=== PATIENT | female | born 1960 | race Caucasian/White ===

== ENCOUNTER 2016-08-02 06:44 | Emergency (ER) ==
[2016-08-02] MEDS ORDERED: ASPIRIN PO STA ×2 (07:01→07:02)
--- NOTE | 2016-08-02 07:05 | EKG Report ---
Test Performed on : 08/02/2016 06:50:58 AM Test Reason : CHEST PAIN Blood Pressure : / mmHG Vent. Rate : 087 BPM Atrial Rate : 087 BPM P-R Int : 118 ms QRS Dur : 140 ms QT Int : 464 ms P-R-T Axes : 103 165 031 degrees QTc Int : 558 ms Atrial-sensed ventricular-paced rhythm Abnormal ECG When compared with ECG of 01-DEC-2015 18:50, Electronic ventricular pacemaker has replaced Atrial fibrillation. Unconfirmed Result
[2016-08-02 07:23] LABS: MANUAL DIFF NEEDED? NO
[2016-08-02 07:24] LABS: BASO% 0.6 % (0.0-0.8); EOS# 0.14 X1000 (0.0-0.7); EOS% 2.1 % (0.0-10.0); HEMATOCRIT 35.3 % (37.0-47.0); HEMOGLOBIN 11.2 g/dL (12.0-16.0); IMM GRAN# 0.01 X1000 (0.0-0.04); IMM GRAN% 0.2 % (0.0-0.5); LYMPH# 2.56 X1000 (1.2-3.4); LYMPH% 38.6 % (20.5-51.1); MCH 27.9 PG (27-31); MCHC 31.7 g/dL (33-37); MCV 87.8 FL (81-99); MONO# 0.85 X1000 (0.11-0.59); MONO% 12.8 % (1.7-9.3); MPV 10.7 FL (7.4-10.4); NEUT% 45.7 % (42.2-75.2); PLT 252 X1000 (130-400); RBC 4.02 XMIL (4.2-5.4)
[2016-08-02] MEDS ORDERED: ATIVAN IV ONE ×2 (07:27→09:44)
[2016-08-02 07:39] LABS: PROTIME 14.5 Seconds (12.1-15.5)
[2016-08-02] MEDS ORDERED: ZOFRAN IV ONE (07:39)
[2016-08-02 07:40] LABS: PTT PL 35.1 Seconds (22.6-43.9)
[2016-08-02 08:01] LABS: URINE SOURCE CLEAN CATCH
--- NOTE | 2016-08-02 08:09 | PROVIDER DOCUMENTATION ---
HPI-Chest Pain <HiramDebra - Last Filed: 08/02/16 11:22> - General Source: patient - History of Present Illness-CP Location: reports: substernal Chest Pain Radiation: reports: no radiation Quality of Pain: reports: aching, pressure Severity in ED: mild Onset/Duration: other (6 hours ago) Timing: still present, improving Context/Activities at Onset: reports: light activity Modifying Factors: improves with: rest, other (See above) Associated Symptoms: reports: fatigue. denies: abdominal pain, back pain, diaphoresis, dizziness, nausea, shortness of breath, syncope, vomiting, weakness Nitro Today/Relief: no nitro taken today Aspirin Treatment Today: provided by ED Prior Chest Pain/Cardiac Workup: reports: no prior chest pain, cardiac cath. denies: heart attack Similar Symptoms Previously?: No Recently Seen Here or By Another Healthcare Provider: No <PhilSuzi X - Last Filed: 08/02/16 17:19> - General Chief Complaint: Chest Pain Stated Complaint: CHEST PAIN Time Seen by Provider: 08/02/16 07:00 Allergies/Adverse Reactions: Patient Allergies Allergy/AdvReac Type Severity Reaction Status Date / Time diphenhydramine HCl * Allergy Severe Unknown Verified 11/06/15 13:58 [From Benadryl] soy Allergy FLUSHING Verified 12/01/15 18:46 Home Medications: Home Medication List Medication Instructions Recorded Confirmed Last Taken Type Bupropion HCl [Wellbutrin Xl] 300 mg PO DAILY 07/23/12 11/30/14 10/21/14 History Cholecalciferol (Vitamin D3) 50,000 unit PO DIRECTED 07/23/12 11/30/14 08:00 History [Vitamin D3] Clonazepam [Klonopin] 2 mg PO TID PRN PRN 07/23/12 11/30/14 04/26/14 21:00 History Cyclobenzaprine [Flexeril] 10 mg PO Q4-6H PRN PRN 07/23/12 11/30/14 04/20/14 21: 00 History Fluoxetine [Prozac] 40 mg PO DAILY 07/23/12 11/30/14 10/21/14 08:00 History Hydroxychloroquine [Plaquenil] 200 mg PO BID 07/23/12 11/30/14 10/21/14 18:00 History Pramipexole [Mirapex] 0.25 mg PO QHS 07/23/12 11/30/14 10/21/14 18:00 History Furosemide [Lasix] 40 mg PO PRN PRN 04/16/13 11/30/14 10/19/14 History Meclizine HCl [Antivert] 25 mg PO PRN PRN 04/23/14 11/30/14 04/20/14 21:00 History Warfarin [Coumadin] 5 mg PO DIRECTED 04/23/14 11/30/14 10/18/14 History Warfarin [Coumadin] 6 mg PO QHS 04/23/14 11/30/14 10/20/14 20:00 History Ondansetron Odt [Zofran 4 mg Odt] 4 mg PO Q6H PRN PRN #30 tablet 10/22/14 Unknown Rx Oxycodone HCl/Acetaminophen 1 each PO Q4-6H PRN PRN #20 tablet 10/22/14 Unknown Rx [Percocet 7.5-325 mg Tablet] Hydrocodone/Acetaminophen [[place] 1 each PO Q4-6H PRN PRN #14 tablet 11/30/14 Unknown Rx 7.5-325 Tablet] Prednisone 50 mg PO DAILY #6 tablet 11/30/14 Unknown Rx Tizanidine [Zanaflex] 4 mg PO TID 11/30/14 11/30/14 Unknown History Amiodarone [Cordarone] 100 mg PO BID 12/01/15 12/01/15 Unknown History Hydrocodone/APAP 5 mg/325 mg 1 each PO Q8H PRN PRN #10 tablet 08/02/16 Unknown Rx [[place]-5] Lorazepam [Ativan] 1 mg PO BID PRN #10 tablet 08/02/16 Unknown Rx Nitrofurantoin Monohyd/M-Cryst 100 mg PO BID #14 capsule 08/02/16 Unknown Rx [Macrobid 100 mg Capsule] - History of Present Illness-CP Nature of Presenting Problem: Reports retro-sternal chest pressure feeling started 6 hours [employer]. Pt was with her father upstairs last night because her father was admitted to hospital last night. Pt had some conflicts with the floor nurses regarding her father's care and was emotionally upset. Had minimal sleep last night. Reports she had a pacer placed 01/17 due to her A-fib, but she had a clean heart cath by then in terms CAD. Denies F/C/SOB/LOC. Pt is still very emotional when seen at ER, and telling me her experience last night in tears. (Suzi Villarreal) Review of Systems - Adult - REVIEW OF SYSTEMS - ADULT Constitutional: reports: see HPI Eyes: reports: no symptoms reported Ears, Nose, Mouth & Throat: reports: no symptoms reported Cardiovascular: reports: see HPI, chest pain Respiratory: reports: no symptoms reported Gastrointestinal: reports: no symptoms reported Genitourinary: reports: no symptoms reported Musculoskeletal: reports: no symptoms reported Integumentary: reports: no symptoms reported Neurological: reports: no symptoms reported Psychiatric: reports: see HPI, anxiety, emotional problems. denies: depression , insomnia, panic attacks, suicidal thoughts Endocrine: reports: no symptoms reported Hematologic/Lymphatic: reports: no symptoms reported Allergic/Immunologic: reports: no symptoms reported All Other Systems: Reviewed and Negative <Suzi Villarreal - Last Filed: 08/02/16 17:19> Past History - Adult - PAST MEDICAL HISTORY-ADULT Review of Records: reports: Old Records Reviewed, Medications Reviewed Major Childhood Illnesses: reports: denies history Cardiovascular: reports: A-Fib Respiratory: reports: sleep apnea Gastrointestinal: reports: GERD, other (Lap band, gastric bypass, chronic abd problems) Obstetrical/Gynecological: reports: denies history Genitourinary: reports: denies history Musculoskeletal: reports: arthritis, chronic pain Neurological: reports: denies history Endocrine/Immune: reports: denies history Other Conditions: reports: denies history - PRIOR SURGERIES/PROCEDURES Surgical/Procedure History: reports: back/neck, gastric bypass - PRIOR HOSPITALIZATIONS Prior Hospitalizations: reports: for other non-related - IMMUNIZATION STATUS Childhood Immunizations: See Nurse Assessment Flu Vaccine: See Nurse Assessment - FAMILY HISTORY Family History: reviewed, not pertinent <Suzi Villarreal - Last Filed: 08/02/16 17:19> Physical Exam-General - PHYSICAL EXAM-ADULT Initial Vital Signs Reviewed: Yes - CONSTITUTIONAL General Appearance: appears well, alert, no apparent distress - EYES Eyes: PERRL/EOMI, pink conjunctivae - HEAD, EARS, NOSE, MOUTH & THROAT HENMT: normocephalic/atraumatic, moist mucous membranes - NECK Neck: non-tender, full range of motion, supple - RESPIRATORY Respiratory: chest non-tender, lungs clear, normal breath sounds, no pleuratic chest pain, no respiratory distress, no accessory muscle use - CARDIOVASCULAR Cardiovascular: normal peripheral pulses, regular rate, rhythm, no edema, no gallop, no JVD - GASTROINTESTINAL (ABDOMEN) Abdominal Exam: normal bowel sounds, non tender, soft, no organomegaly - MUSCULOSKELETAL Back Exam: normal inspection, no CVA tenderness, no vertebral tenderness Extremity: normal range of motion, non-tender, normal gait, normal inspection - SKIN Integumentary: normal color, normal turgor, warm/dry - NEUROLOGIC Neurologic: no motor/sensory deficits - PSYCHIATRIC Psych/Mental Status: normal mood/affect, normal thought content, normal thought process, oriented x 3, anxious, tearful <Suzi Villarreal - Last Filed: 08/02/16 17:19> Progress - EKG 1 Time of EKG reading by physician:: 06:50 EKG Read and Signed by:: Suzi Villarreal EKG Interpretation (*Must complete 3 of following elements*): Abnormal Rate: 87 Rhythm: atrial-sensed ventricular paced rhythm Comments: abnormal ECG 2 Time of EKG reading by physician:: 09:12 EKG Read and Signed by:: Suzi Villarreal EKG Interpretation (*Must complete 3 of following elements*): Abnormal Rate: 80 Rhythm: atrial-sensed ventricular paced rhythm Comments: abnormal ECG - XRAY 1 XRAY: Bilateral XRAY Study: Chest Impression: Normal XRAY Interpretation: no acute disease <Debra Gandhi - Last Filed: 08/02/16 11:22> <Suzi Villarreal - Last Filed: 08/02/16 17:19> - PLAN OF CARE/RESULTS Progress/Plan/Lab Results: Laboratory Tests 08/02/16 08/02/16 08/02/16 07:13 07:13 07:13 WBC 6.64 RBC 4.02 L Hgb 11.2 L Hct 35.3 L MCV 87.8 MCH 27.9 MCHC 31.7 L RDW Std Deviation 12.7 Plt Count 252 MPV 10.7 H Immature Gran % (Auto) 0.2 Neut % (Auto) 45.7 Lymph % (Auto) 38.6 [place] % (Auto) 12.8 H Eos % (Auto) 2.1 Baso % (Auto) 0.6 Immature Gran # (Auto) 0.01 Neut # (Auto) 3.04 Lymph # (Auto) 2.56 [place] # (Auto) 0.85 H Eos # (Auto) 0.14 Baso # (Auto) 0.04 PT 14.5 INR 1.10 APTT (Factor Assay) 35.1 D-Dimer < 0.22 L Sodium Potassium Chloride Carbon Dioxide Anion Gap BUN Creatinine Estimated GFR/1.73 m2 BUN/Creatinine Ratio Glucose Calculated Osmolality Calcium Magnesium Total Bilirubin AST ALT Alkaline Phosphatase Creatine Kinase Troponin T < 0.010 [id number] Pept Total Protein Albumin Globulin Albumin/Globulin Ratio Urine Source Urine Color Urine Clarity Urine pH Ur Specific [place] Urine Protein Urine Ketones Urine Blood Urine Nitrite Urine Bilirubin Urine Urobilinogen Urine WBC Urine Glucose Urine Opiates Screen Ur Oxycodone Screen Urine Methadone Screen Ur Barbituates Screen Ur Tricyclics Screen Ur Phencyclidine Scrn Ur Amphetamines Screen U Methamphetamines Scrn Urine MDMA Screen U Benzodiazepines Scrn Urine Cocaine Screen U Cannabinoids Screen 08/02/16 08/02/16 08/02/16 07:32 07:32 07:48 WBC RBC Hgb Hct MCV MCH MCHC RDW Std Deviation Plt Count MPV Immature Gran % (Auto) Neut % (Auto) Lymph % (Auto) [place] % (Auto) Eos % (Auto) Baso % (Auto) Immature Gran # (Auto) Neut # (Auto) Lymph # (Auto) [place] # (Auto) Eos # (Auto) Baso # (Auto) PT INR APTT (Factor Assay) D-Dimer Sodium 139 Potassium 3.7 Chloride 100 Carbon Dioxide 25 Anion Gap 15 BUN 11 Creatinine 0.8 Estimated GFR/1.73 m2 > 60 BUN/Creatinine Ratio 14 Glucose 117 H Calculated Osmolality 278 Calcium 9.5 Magnesium 2.3 Total Bilirubin 0.20 AST 32 H ALT 33 Alkaline Phosphatase 182 H Creatine Kinase 110 Troponin T [id number]-Ftigfhzdxwd Pept Total Protein 7.8 Albumin 4.3 Globulin 4.0 Albumin/Globulin Ratio 1.0 Urine Source CLEAN CATCH Urine Color YELLOW Urine Clarity CLEAR Urine pH 5.0 Ur Specific [place] 1.015 Urine Protein NEGATIVE Urine Ketones NEGATIVE Urine Blood NEGATIVE Urine Nitrite NEGATIVE Urine Bilirubin NEGATIVE Urine Urobilinogen NORMAL Urine WBC TRACE A Urine Glucose NEGATIVE Urine Opiates Screen PRESUMPTIVE POSITIVE A Ur Oxycodone Screen NONE DETECTED Urine Methadone Screen NONE DETECTED Ur Barbituates Screen NONE DETECTED Ur Tricyclics Screen NONE DETECTED Ur Phencyclidine Scrn NONE DETECTED Ur Amphetamines Screen NONE DETECTED U Methamphetamines Scrn NONE DETECTED Urine MDMA Screen NONE DETECTED U Benzodiazepines Scrn PRESUMPTIVE POSITIVE A Urine Cocaine Screen NONE DETECTED U Cannabinoids Screen NONE DETECTED 08/02/16 07:48 WBC RBC Hgb Hct MCV MCH MCHC RDW Std Deviation Plt Count MPV Immature Gran % (Auto) Neut % (Auto) Lymph % (Auto) [place] % (Auto) Eos % (Auto) Baso % (Auto) Immature Gran # (Auto) Neut # (Auto) Lymph # (Auto) [place] # (Auto) Eos # (Auto) Baso # (Auto) PT INR APTT (Factor Assay) D-Dimer Sodium Potassium Chloride Carbon Dioxide Anion Gap BUN Creatinine Estimated GFR/1.73 m2 BUN/Creatinine Ratio Glucose Calculated Osmolality Calcium Magnesium Total Bilirubin AST ALT Alkaline Phosphatase Creatine Kinase Troponin T [id number]-Hnfqsovzrao Pept 518 H Total Protein Albumin Globulin Albumin/Globulin Ratio Urine Source Urine Color Urine Clarity Urine pH Ur Specific [place] Urine Protein Urine Ketones Urine Blood Urine Nitrite Urine Bilirubin Urine Urobilinogen Urine WBC Urine Glucose Urine Opiates Screen Ur Oxycodone Screen Urine Methadone Screen Ur Barbituates Screen Ur Tricyclics Screen Ur Phencyclidine Scrn Ur Amphetamines Screen U Methamphetamines Scrn Urine MDMA Screen U Benzodiazepines Scrn Urine Cocaine Screen U Cannabinoids Screen Orders Category Date Time Status Cardiac Monitoring DIRECTED Care 08/02/16 07:01 Active Cardiac Monitoring DIRECTED Care 08/02/16 07:03 Active Oxygen Therapy- ED Nursing DIRECTED Care 08/02/16 07:03 Active Saline Loc NOW Care 08/02/16 07:01 Active Saline Loc NOW Care 08/02/16 07:03 Active CHEST-PORTABLE [RAD] Stat Exams 08/02/16 07:01 Draft CBC WITH ELECTRONIC DIFF [HEME] Stat Lab 08/02/16 07:13 Completed CK PROFILE [SP CHEM] Stat Lab 08/02/16 07:48 Completed COMPREHENSIVE METABOLIC PANEL [CHEM] Stat Lab 08/02/16 07:48 Com[address] D-DIMER PL [COAG] Stat Lab 08/02/16 07:13 Completed MAGNESIUM [CHEM] Stat Lab 08/02/16 07:48 Completed PRO B-NATRIURETIC PEPTIDE Stat Lab 08/02/16 07:48 Completed [address]IME WITH INR PL [COAG] Stat Lab 08/02/16 07:[address] [COAG] Stat Lab 08/02/16 07:13 Completed TROPONIN T Stat Lab 08/02/16 07:[address] W/POSS RFLX CULT [URINALYSIS] Stat Lab 08/02/16 07:32 Results URINE DRUG SCREEN PL Stat Lab 08/02/16 07:32 Completed Aspirin Med 08/02/16 07:01 Discontinued 325 mg PO STAT STA Aspirin Med 08/02/16 07:02 Discontinued 325 mg PO STAT STA Lorazepam [Ativan] Med 08/02/16 07:27 Discontinued 1 mg IV NOW ONE Ondansetron [Zofran] Med 08/02/16 07:39 Discontinued 4 mg IV NOW ONE EKG [EKG] Stat Ther 08/02/16 07:01 Draft EKG [EKG] Stat Ther 08/02/16 07:03 Ordered Vital Signs - 24 hr 08/02/16 06:51 Pulse Rate 87 Respiratory 18 Rate Blood Pressure 196/109 O2 Sat by Pulse 100 Oximetry (Debra Gandhi) Departure - Departure Time of Disposition Order: 11:23 Certified Medical Emergency: Emergent <Debra Gandhi - Last Filed: 08/02/16 11:22> <Suzi Villarreal X - Last Filed: 08/02/16 17:19> - Departure DIAGNOSIS: Atypical chest pain, Anxiety UTI (urinary tract infection) Qualifiers: Urinary tract infection type: site unspecified Hematuria presence: without hematuria Qualified Code(s): N39.0 - Urinary tract infection, site not specified Disposition: HOME 01 Condition: Stable Additional Instructions: Follow up with regular MD in 2-3 days for further management as indicated. Plenty of oral fluids. Return to ER if your chest pain comes back. Prescriptions: Lorazepam [Ativan] 1 mg PO BID PRN #10 tablet PRN Reason: Anxiety Nitrofurantoin Monohyd/M-Cryst [Macrobid 100 mg Capsule] 100 mg PO BID #14 capsule Hydrocodone/APAP 5 mg/325 mg [[place]-5] 1 each PO Q8H PRN PRN #10 tablet PRN Reason: Pain Referrals: Yeni Bowling MD [Primary Care Provider] - Instructions: Nitrofurantoin tablets or capsules, Hydrocodone; Ibuprofen tablets, Panic Attacks, [id number], Nonspecific Chest Pain, Urinary Tract Infection, [id number], Lorazepam tablets Attestation - Scribe Verification/Attestation Scribe:: Debra Gandhi Acting as Scribe for:: Suzi Villarreal Scribe documention review:: This chart was documented by a scribe and accurately reflects the service the provider performed and the decisions made by the provider. <Debra Gandhi - Last Filed: 08/02/16 11:22> Physician Attestation
[2016-08-02 08:11] LABS: UR AMPHETAMINES QUAL NONE DETECTED (NONE DETECT); UR BARBITUATES QUAL NONE DETECTED (NONE DETECT); UR BENZODIAZEPIN QUAL PRESUMPTIVE POSITIVE (NONE DETECT); UR CANNABINOIDS QUAL NONE DETECTED (NONE DETECT); UR COCAINE QUAL NONE DETECTED (NONE DETECT); UR MDMA QUAL NONE DETECTED (NONE DETECT); UR METHADONE QUAL NONE DETECTED (NONE DETECT); UR METHAMPHETAMINE QUAL NONE DETECTED (NONE DETECT); UR OPIATES QUAL PRESUMPTIVE POSITIVE (NONE DETECT); UR OXYCODONE QUAL NONE DETECTED (NONE DETECT); UR PCP QUAL NONE DETECTED (NONE DETECT); UR TCA QUAL NONE DETECTED (NONE DETECT)
[2016-08-02 08:16] LABS: BILIRUBIN URINE NEGATIVE (NEGATIVE); BLOOD URINE NEGATIVE (NEGATIVE); CLARITY CLEAR (CLEAR); COLOR YELLOW; GLUCOSE URINE NEGATIVE (NEGATIVE); LEUKOCYTES URINE TRACE (NEGATIVE); NITRITE URINE NEGATIVE (NEGATIVE); PROTEIN URINE NEGATIVE (NEGATIVE); SP GRAVITY URINE 1.015; UROBILINOGEN URINE NORMAL
[2016-08-02 08:16] LABS: AGAP 15; ALBUMIN 4.3 g/dL (3.5-5.0); ALKALINE PHOSPHATASE 182 U/L (32-104); BUN 11 mg/dL (8-22); CALCIUM 9.5 mg/dL (8.8-10.2); CHLORIDE 100 mmol/L (98-107); CK PROFILE 110 U/L (24-173); COSMO 278; GOT 32 U/L (10-30); GPT 33 U/L (10-36); MAGNESIUM 2.3 mg/dL (1.5-2.7); POTASSIUM 3.7 mmol/L (3.5-5.1); SODIUM 139 mmol/L (136-145); TCO2 25 mmol/L (25-35); TOTAL PROTEIN 7.8 g/dL (6.3-8.3)
--- NOTE | 2016-08-02 08:23 | Diag Imaging Result Document ---
PROCEDURE NAME: CHEST-PORTABLE - 08/02/2016 CHEST, SINGLE VIEW: INDICATION: Chest pain. COMPARISON: 11/06/2015. FINDINGS: The heart size is within normal limits. There is a left pacemaker. There are postsurgical changes of the lower cervical spine. Pulmonary vasculature is not congested. No infiltrate, effusion, or pneumothorax is appreciated. IMPRESSION: No acute abnormalities.
[2016-08-02 09:06] LABS: URINE CULTURE PL NEEDED? YES; URINE EPITHELIAL CELLS >10 /HPF (<10); URINE WBC <10 /HPF (<10)
--- NOTE | 2016-08-02 09:20 | EKG Report ---
Test Performed on : 08/02/2016 09:12:53 AM Test Reason : repeat Blood Pressure : / mmHG Vent. Rate : 080 BPM Atrial Rate : 080 BPM P-R Int : 136 ms QRS Dur : 144 ms QT Int : 474 ms P-R-T Axes : 080 188 044 degrees QTc Int : 546 ms Atrial-sensed ventricular-paced rhythm Abnormal ECG When compared with ECG of 02-AUG-2016 06:50, (Unconfirmed) Vent. rate has decreased BY 7 BPM Unconfirmed Result
[2016-08-02] MEDS ORDERED: ROCEPHIN 1 GM/NS 50 ML IV ONE (10:12)
[2016-08-02] MEDS ORDERED: NS 1,000 ML IV ONE (10:12)
[2016-08-02] MEDS ORDERED: TYLENOL ONE (11:04)
[2016-08-02 12:11] VITALS: BP 175/91
== END 2016-08-02 12:16 | disposition home or self-care (01) ==
LOC: P.ED 06:44
DX: R07.89 Other chest pain (principal); N39.0 Urinary tract infection, site not specified; F41.9 Anxiety disorder, unspecified; R94.31 Abnormal electrocardiogram [ECG] [EKG]; R53.83 Other fatigue; I48.91 Unspecified atrial fibrillation; M19.90 Unspecified osteoarthritis, unspecified site; G89.29 Other chronic pain; Z79.899 Other long term (current) drug therapy; Z79.01 Long term (current) use of anticoagulants; Z98.84 Bariatric surgery status
CPT/HCPCS: 71010; 80053; 80305; 81001; 82550; 83735; 83880; 84484; 85025; 85379; 85610; 85730; 87088; 93005; 96361; 96365; 96375; 96376; J0696; J2060; J2405; J7030

== ENCOUNTER 2019-05-26 15:24 | Inpatient (IN) ==
[2019-05-26] MEDS ORDERED: MORPHINE IV ONE (15:50)
[2019-05-26] MEDS ORDERED: ASPIRIN PO ONE (15:50)
--- NOTE | 2019-05-26 15:58 | EKG Report ---
Test Performed on : 05/26/2019 3:55:58 PM Test Reason : CP Blood Pressure : / mmHG Vent. Rate : 090 BPM Atrial Rate : 090 BPM P-R Int : 000 ms QRS Dur : 140 ms QT Int : 454 ms P-R-T Axes : 000 160 029 degrees QTc Int : 555 ms Ventricular-paced rhythm Abnormal ECG When compared with ECG of 07-MAR-2019 13:10, No significant change was found Confirmed by Randy NICOLE, Yusuf ([id number]), general expeditor Rneetta Arias ([id number]) on 07/07/2019 12:37:46 PM
[2019-05-26 16:10] LABS: BASO# 0.05 X1000 (0.0-0.2); BASO% 0.9 % (0.0-0.8); EOS% 1.8 % (0.0-10.0); HEMATOCRIT 30.7 % (37.0-47.0); HEMOGLOBIN 9.1 g/dL (12.0-16.0); IMM GRAN# 0.01 X1000 (0.0-0.04); IMM GRAN% 0.2 % (0.0-0.5); LYMPH# 1.98 X1000 (1.2-3.4); MCH 25.2 PG (27-31); MCHC 29.6 g/dL (33-37); MONO% 14.5 % (1.7-9.3); MPV 10.7 FL (7.4-10.4); NEUT# 2.56 X1000 (1.4-6.5); NEUT% 46.6 % (42.2-75.2); PLT 297 X1000 (130-400); RBC 3.61 XMIL (4.2-5.4)
--- NOTE | 2019-05-26 16:25 | Diag Imaging Result Doc PS360 ---
EXAM: CHEST-2 VIEWS HISTORY: CP TECHNIQUE: Two views COMPARISON: 03/07/2019 FINDINGS: The lungs are hyperexpanded. The heart is mildly prominent. There is a left-sided pacemaker. The vessels are not distended. There are no infiltrates. No pleural effusions. IMPRESSION: Stable chest Electronically signed by Anirudh Headley 05/26/2019 4:22 PM
[2019-05-26 16:34] LABS: AGAP 15; ALBUMIN 3.4 g/dL (3.5-5.0); ALKALINE PHOSPHATASE 165 U/L (32-104); BUN 15 mg/dL (8-22); CALCIUM 8.4 mg/dL (8.8-10.2); CHLORIDE 101 mmol/L (98-107); COSMO 276; CREATININE 0.7 mg/dL (0.5-0.9); ESTIMATED GFR > 60; GLUCOSE 88 mg/dL (70-104); GOT 40 U/L (10-30); GPT 22 U/L (10-36); POTASSIUM 3.8 mmol/L (3.5-5.1); SODIUM 138 mmol/L (136-145); TCO2 23 mmol/L (25-35); TOTAL PROTEIN 6.9 g/dL (6.3-8.3)
[2019-05-26 16:52] LABS: CK INDEX 0.7 (0.0-2.5); CK-MB 2.26 ng/mL (0.0-5.0)
[2019-05-26] MEDS ORDERED: LASIX IV ONE ×2 (17:02→17:30)
[2019-05-26] MEDS ORDERED: LASIX IV SCH (17:30)
--- NOTE | 2019-05-26 18:13 | PROVIDER DOCUMENTATION ---
This chart was entered by Paz Alcantara Scribe, acting as scribe for Rubi Fox MD. HPI-Chest Pain - General Chief Complaint: Chest Pain Stated Complaint: Chest pain Time Seen by Provider: 05/26/19 15:39 Source: patient Allergies/Adverse Reactions: Patient Allergies Allergy/AdvReac Type Severity Reaction Status Date / Time diphenhydramine HCl * Allergy Severe Unknown Verified 03/14/18 14:32 [From Benadryl] soy Allergy FLUSHING Verified 03/14/18 14:32 ondansetron [From Zofran] AdvReac NAUSEA/VOMI Verified 03/14/18 14:33 TING Home Medications: Home Medication List Medication Instructions Recorded Confirmed Last Taken Type Fluoxetine [Prozac] 40 mg PO DAILY 07/23/12 05/26/19 10/16/17 09:30 History Pramipexole [Mirapex] 0.25 mg PO HS 07/23/12 05/27/19 10/16/17 22:30 History Furosemide [Lasix] 20 - 40 mg PO PRN PRN 04/16/13 05/26/19 2 Weeks Ago History ~10/03/17 Tizanidine [Zanaflex] 4 mg PO Q8H PRN PRN 11/30/14 05/26/19 10/16/17 22:30 History Cholecalciferol (Vitamin D3) 5,000 unit PO DAILY 10/10/17 05/26/19 10/16/17 09:30 History [Vitamin D3] Apixaban [Eliquis] 5 mg PO BID #0 10/17/17 05/26/19 5 Days Ago Rx ~10/12/17 Buprenorphine/Naloxone S.l. 0.5 tab PO TID@0900,1500,2100 05/26/19 05/26/19 Unknown History [Suboxone 8 mg/2 mg] Clonazepam 1 tab PO Q8H PRN 05/26/19 05/26/19 Unknown History Furosemide [Lasix] 40 mg PO BID 05/26/19 05/26/19 Unknown History Meclizine [Antivert] 25 mg PO Q6H PRN PRN 05/26/19 05/26/19 Unknown History Spironolactone 25 mg PO DAILY 05/26/19 05/26/19 Unknown History - History of Present Illness-CP Nature of Presenting Problem: Patient is a 58 y/o female presenting to the ED today c/o chest pain. Patient reports onset of symptoms shortly after midnight. Patient states she had sudden onset of chest pain and SOB. Patient reports she took 2 Nitro about 10 minutes apart and her pain resolved. Patient reports upon waking this morning, she had recurrence of the pain. Patient reports she called her PCP and her general surgeon's office who both advised her to come to the ER. Patient states her pain has remained constant throughout the day and describes her pain as heavy and rates severity at 7/10. Patient reports she has a pacemaker. Patient reports multiple surgeries for infections secondary to mesh used in an abdominal hernia repair. Patient reports she has chronic abdominal pain associated with this. Patient reports she has a history of CHF but reports that her leg swelling has recently increased and she is taking Lasix 40 mg daily along with Aldactone. Patient denies all other signs/symptoms. Location: reports: central Chest Pain Radiation: reports: no radiation Quality of Pain: reports: other ("heaviness") Onset/Duration: this morning Timing: still present Context/Activities at Onset: reports: rest Associated Symptoms: reports: edema (bilateral lower extremities) Nitro Today/Relief: 0.4 mg x 2 (around 0030) Aspirin Treatment Today: no aspirin today Prior Chest Pain/Cardiac Workup: reports: no prior chest pain, no prior cardiac workup Similar Symptoms Previously?: No Recently Seen Here or By Another Healthcare Provider: No Review of Systems - Adult - REVIEW OF SYSTEMS - ADULT Constitutional: denies: chills, fever Eyes: reports: no symptoms reported Ears, Nose, Mouth & Throat: reports: no symptoms reported Cardiovascular: reports: chest pain, edema Respiratory: denies: cough, shortness of breath Gastrointestinal: reports: abdominal pain (chronic) Genitourinary: reports: no symptoms reported Musculoskeletal: reports: no symptoms reported Integumentary: reports: no symptoms reported Neurological: reports: no symptoms reported Psychiatric: reports: no symptoms reported Endocrine: reports: no symptoms reported Hematologic/Lymphatic: reports: no symptoms reported Allergic/Immunologic: reports: no symptoms reported All Other Systems: Reviewed and Negative Past History - Adult - PAST MEDICAL HISTORY-ADULT Review of Records: reports: Old Records Reviewed, Nursing Assessment Review, Medications Reviewed, Social history reviewed & non-contributory. Major Childhood Illnesses: reports: denies history Cardiovascular: reports: A-Fib, HTN Respiratory: reports: sleep apnea Gastrointestinal: reports: GERD, other (Lap band, gastric bypass, chronic abd problems) Obstetrical/Gynecological: reports: denies history Genitourinary: reports: denies history Musculoskeletal: reports: arthritis, chronic pain Neurological: reports: denies history Endocrine/Immune: reports: denies history Other Conditions: reports: denies history - PRIOR SURGERIES/PROCEDURES Surgical/Procedure History: reports: cholecystectomy, back/neck, gastric bypass - PRIOR HOSPITALIZATIONS Prior Hospitalizations: reports: for other non-related - IMMUNIZATION STATUS Childhood Immunizations: See Nurse Assessment Flu Vaccine: See Nurse Assessment - FAMILY HISTORY Family History: reviewed, not pertinent - SOCIAL HISTORY Smoking: quit greater than 1 year Living Situation: family Occupation: retired nurse Physical Exam-General - PHYSICAL EXAM-ADULT Initial Vital Signs Reviewed: Yes - CONSTITUTIONAL General Appearance: alert, no apparent distress - EYES Eyes: PERRL/EOMI - HEAD, EARS, NOSE, MOUTH & THROAT HENMT: normocephalic/atraumatic, moist mucous membranes - NECK Neck: full range of motion, supple - RESPIRATORY Respiratory: lungs clear, normal breath sounds, no respiratory distress, no accessory muscle use - CARDIOVASCULAR Cardiovascular: regular rate, rhythm, no edema, no gallop, no murmur, other (pacemaker in left anterior chest wall) - CHEST (BREASTS) Chest/Breast: deferred - GASTROINTESTINAL (ABDOMEN) Abdominal Exam: non tender, soft - MUSCULOSKELETAL Extremity: normal range of motion, normal gait, normal inspection, pedal edema (3+ to knees bilaterally) - SKIN Integumentary: normal color, normal turgor, warm/dry - NEUROLOGIC Neurologic: grossly normal, no motor/sensory deficits - PSYCHIATRIC Psych/Mental Status: anxious, paranoid, other (needs redirecting to answer questions) - HEART Score HEART Score: History: Slightly Suspicious HEART Score: ECG: Non-Specific Repolarization Disturbance/LBBB/PM HEART Score: Age: > or = 65 Years HEART Score: Risk Factors for Atherosclerotic Disease: 1 or 2 Risk Factors HEART Score: Troponin: < or = Normal Limit Total HEART Score:: 4 Progress - PLAN OF CARE/RESULTS Progress/Plan/Lab Results: Orders Category Date Time Status Admit [facility] Routine AdmDCTranf 05/26/19 17:57 Active Activity - Up with Assistance ORDERED Care 05/26/19 21:29 Active Cardiac Monitoring DIRECTED Care 05/26/19 15:49 Completed Cardiac Monitoring DIRECTED Care 05/26/19 17:18 Completed Daily Weights 0600 Care 05/26/19 21:29 Active Intake and Output-Strict ORDERED Care 05/26/19 17:18 Active Saline Loc DIRECTED Care 05/26/19 21:29 Completed Use Oxygen.Protocol ORDERED Care 05/26/19 21:29 Completed Weight on Admission ORDERED Care 05/26/19 21:29 Completed Z-Document. for Tele Applied ORDERED Care 05/26/19 17:18 Completed Heart Healthy Diet Diet 05/26/19 21:29 Completed CHEST-2 VIEWS [RAD] Stat Exams 05/26/19 15:48 Completed CHEST-PORTABLE [RAD] Routine Exams 05/27/19 06:00 Completed CBC WITH ELECTRONIC DIFF [HEME] Stat Lab 05/26/19 16:02 Completed CK PROFILE [SP CHEM] Q8H Lab 05/27/19 01:00 Completed CK PROFILE [SP CHEM] Q8H Lab 05/27/19 08:00 Completed CK PROFILE [SP CHEM] Stat Lab 05/26/19 16:02 Completed CMP [COMPREHENSIVE METABOLIC PANEL] [CHEM] Routine Lab 05/27/19 01:00 Completed COMPREHENSIVE METABOLIC PANEL [CHEM] Stat Lab 05/26/19 16:02 Completed MAGNESIUM [CHEM] Routine Lab 05/27/19 01:00 Completed PRO B-NATRIURETIC PEPTIDE Routine Lab 05/27/19 01:00 Completed PRO B-NATRIURETIC PEPTIDE Stat Lab 05/26/19 16:02 Completed TROPONIN T Q8H Lab 05/27/19 01:00 Completed TROPONIN T Q8H Lab 05/27/19 08:00 Completed TROPONIN T Stat Lab 05/26/19 16:02 Completed TROPONIN T Stat Lab 05/26/19 18:30 Completed TSH Stat Lab 05/26/19 16:02 Completed URINALYSIS W/POSS RFLX CULT [URINALYSIS] Stat Lab 05/26/19 19:28 Completed Aspirin Med 05/26/19 15:50 Discontinued 324 mg PO NOW ONE Furosemide [Lasix] Med 05/26/19 17:30 Discontinued 20 mg IV NOW ONE Furosemide [Lasix] Med 05/26/19 17:02 Discontinued 80 mg IV NOW ONE Furosemide [Lasix] Med 05/26/19 17:30 Discontinued 80 mg IV Q12H Morphine Med 05/26/19 15:50 Discontinued 4 mg IV NOW ONE Telemetry [OM.EQ] Routine Oth 05/26/19 17:18 Active EKG [EKG] Stat Ther 05/26/19 15:49 Draft EKG [EKG] Stat Ther 05/26/19 18:15 Draft Echo Spec/Color Doppler Routine Ther 05/27/19 08:00 Draft Transfer/Admit Order [TRANSFER] Routine Transfer 05/26/19 17:16 Completed Result Diagrams: 05/29/19 06:35 05/29/19 06:35 - REASSESSMENT Reassessment #1 Time Reassessed: 17:03 Status: improving (pt states pain has improved just a little. Heart score of 4. CHF exacerbation with sig LE edema. Will plan for admission.) - EKG 1 Time of EKG reading by physician:: 16:02 EKG Read and Signed by:: Rubi Fox EKG Interpretation (*Must complete 3 of following elements*): Abnormal Rate: 90 Rhythm: Ventricular-paced rhythm Prior EKG Comparison: unchanged from prior - XRAY 1 XRAY Study: Chest Impression: See EMR Report (EXAM: CHEST-2 VIEWS HISTORY: CP TECHNIQUE: Two views COMPARISON: 03/07/2019 FINDINGS: The lungs are hyperexpanded. The heart is mildly prominent. There is a left-sided pacemaker. The vessels are not distended. There are no infiltrates. No pleural effusions. IMPRESSION: Stable chest Electronically signed by Anirudh Headley 05/26/2019 4:22 PM 05/26/[id number] Interpreting Physician: Anirudh Headley MD Dictated Date/Time: 05/26/19 1622 cc: Rubi Fox MD; Yeni Bowling MD) - CONSULTS/PCP/HOSPITALIST Notification #1 *Consult/PCP/Hospitalist*: Dr. Morrow Consult Disposition: Admit Departure - Departure Date of Disposition Decision: 05/26/19 Time of Disposition Decision: 19:40 DIAGNOSIS: Leg edema, left, Leg edema, right, Swelling of both lower extremities, Chest pain Disposition: ADMITTED INPATIENT 09 Certified Medical Emergency: Emergent Condition: Stable - Critical Care Note This patient required my direct & personal management of CC.: No Attestation - Physician/ YUAN Attestation Patient care was provided by Advanced Practice Provider:: No The physician spent face to face time with patient:: Yes Advanced Practice Provider documentation review:: Supervising physician onsite and consulted in the evaluation and care of this patient. The physician did have a face to face encounter with the patient. This chart was documented by the indicated scribe, (Paz Alcantara, Lee) and accurately reflects the services I performed and decisions made by me, Rubi Fox MD, as attested by the provider's signature.
--- NOTE | 2019-05-26 19:15 | EKG Report ---
Test Performed on : 05/26/2019 6:38:40 PM Test Reason : CP Blood Pressure : / mmHG Vent. Rate : 090 BPM Atrial Rate : 250 BPM P-R Int : 000 ms QRS Dur : 140 ms QT Int : 446 ms P-R-T Axes : 000 147 009 degrees QTc Int : 545 ms Ventricular-paced rhythm Abnormal ECG When compared with ECG of 26-MAY-2019 15:55, (Unconfirmed) No significant change was found Confirmed by Yusuf Padilla MD ([id number]), editor news Renetta Arias ([id number]) on 07/07/2019 12:37:47 PM
[2019-05-26 19:35] LABS: URINE SOURCE CLEAN CATCH
[2019-05-26 19:37] LABS: BILIRUBIN URINE NEGATIVE (NEGATIVE); BLOOD URINE NEGATIVE (NEGATIVE); COLOR YELLOW; GLUCOSE URINE NEGATIVE (NEGATIVE); KETONE URINE NEGATIVE (NEGATIVE); LEUKOCYTES URINE NEGATIVE (NEGATIVE); NITRITE URINE NEGATIVE (NEGATIVE); PROTEIN URINE TRACE mg/dL (NEGATIVE); SP GRAVITY URINE 1.024; TURBIDITY URINE HAZY (CLEAR); UROBILINOGEN URINE NORMAL (NORMAL)
[2019-05-26 19:38] LABS: UR EPITHELIAL CELLS <10 /HPF (<10); URINE BACTERIA NEGATIVE /HPF; URINE RBC <10 /HPF (<10); URINE WBC <10 /HPF (<10)
[2019-05-27 02:00] LABS: AGAP 12; ALBUMIN 2.9 g/dL (3.5-5.0); ALKALINE PHOSPHATASE 142 U/L (32-104); BUN 14 mg/dL (8-22); CALCIUM 7.9 mg/dL (8.8-10.2); CHLORIDE 104 mmol/L (98-107); COSMO 280; CREATININE 0.8 mg/dL (0.5-0.9); ESTIMATED GFR > 60; GLUCOSE 98 mg/dL (70-104); GOT 32 U/L (10-30); GPT 18 U/L (10-36); MAGNESIUM 1.8 mg/dL (1.5-2.7); POTASSIUM 3.8 mmol/L (3.5-5.1); SODIUM 140 mmol/L (136-145); TCO2 24 mmol/L (25-35); TOTAL PROTEIN 5.8 g/dL (6.3-8.3)
[2019-05-27 02:03] LABS: CK INDEX 0.8 (0.0-2.5); CK-MB 1.55 ng/mL (0.0-5.0)
[2019-05-27] MEDS ORDERED: LASIX IV SCH (08:00)
--- NOTE | 2019-05-27 08:12 | Diag Imaging Result Doc PS360 ---
CHEST-PORTABLE - 05/27/2019 INDICATION: chf COMPARISON: 05/26/2019 FINDINGS: Stable left-sided pacemaker. Stable hazy interstitial infiltrates bilaterally suggesting some minimal edema or fibrosis. No new infiltrates. No pneumothorax or pleural effusion. IMPRESSION: No change from prior. Electronically signed by Chema Ocasio 05/27/2019 8:10 AM
[2019-05-27] MEDS ORDERED: LASIX IV ONE (09:39)
[2019-05-27] MEDS: PROZAC PO SCH (10:26)
[2019-05-27] MEDS: ELIQUIS PO SCH ×2 (10:26→20:50)
[2019-05-27] MEDS: MIRAPEX PO SCH ×3 (10:26→20:50)
[2019-05-27] MEDS: VITAMIN D PO SCH (10:27)
--- NOTE | 2019-05-27 11:54 | HISTORY AND PHYSICAL ---
PRIMARY CARE PROVIDER: Yeni Bowling MD. PRODUCTION PACKAGER: Handy Long MD. CHIEF COMPLAINT: Multitude, chest pain, abdominal pain, back pain, multiple episodes of syncope and falls, 40 pound weight loss, bilateral lower extremity swelling, abdominal growth. HISTORY OF PRESENT ILLNESS: Ms. Maher is a 58-year-old female who carries a past medical history of atrial fibrillation status post 2 ablations and permanent pacemaker [facility] in 2016, iron-deficiency anemia, sleep apnea, GERD, chronic pain syndrome, sciatica, rheumatoid arthritis, fibromyalgia, failed Lap-Band procedure that turned into a gastric bypass that resulted in ventral hernias and several seromas and aspirations that led to a wound VAC and other reconstructions of her abdominal area, anxiety and depression. The patient reports that she had went to a spine and neurosurgeon for what sounded like an experimental procedure I believe to her lower back. He recommended weight loss, PT, and not lifting anything heavier than 5 pounds. She reports a total of 40 pound weight loss since the Fall not on her part for trying to lose weight just started having an aversion to the smell of food as well as taste in changes to food. She also reports for the last several months she has had syncope and near syncopal episodes and multiple falls for which she comes to the ED and will have CT scans and x-rays to be checked out, follows up closely with her primary care provider, Dr. Yeni Bowling. She also reports over the last several months she has had some bilateral lower extremity swelling for which she has been put on Lasix p.r.n., however, recently she is having to take it as part of her normal medications daily. Last week, she had episodes of nausea and vomiting. She saw Dr. Cullen last for abdominal pain and a new mass that she found in her belly. She does have a CT scan ordered as an outpatient on the . She reported syncope early Sunday morning. She was able to pass out on the bed. She was experiencing chest pain, took a nitroglycerin, and took a second nitroglycerin, and the chest pain subsided, and then again yesterday at 3 a.m. she had chest heaviness, took another nitroglycerin and got relief. She stated that her and her waited it out until about 9 a.m. They got up and called her primary care provider as well as Dr. Cullen's office for suggestion. They both suggested that she come to the ED and be evaluated. She did have some associated shortness of breath. She also reports that she has not been able to pick and shovel worker her feet to even put her pants on. Her will have to lift her legs up. She has not been able to get into the bed by herself. Initial workup in the ED showed a negative troponin, and EKG where she was ventricularly paced. She was given 4 of morphine, full-dose aspirin. She was found to have an elevated ProBNP at 3021, which is way up from her baseline. She did have 2 separate doses of Lasix ordered in the ED, however, neither dose was actually given. Repeat ProBNP this morning is still elevated at 2989. All sets of troponins have been negative x3. We will go ahead and start diuresing her b.i.d. She does have bilateral lower extremity edema that goes all the way up to her upper thigh. Will check an echocardiogram. Continue with other treatment and evaluation. PAST MEDICAL HISTORY: 1. Atrial fibrillation. 2. Hypertension. 3. Sleep apnea. 4. Iron-deficiency anemia. 5. GERD. 6. Chronic pain syndrome neck and spine. 7. Rheumatoid arthritis. 8. Fibromyalgia. 9. Sciatic nerve that goes down the right leg. 10.Morbid obesidty with failed Lap-Band procedure resulting in a gastric bypass. 11.Ventral hernias/Seromas. SURGICAL PROCEDURES: 1. Lap-Band procedure failed that turned into gastric bypass, which resulted in ventral hernias with repairs with mesh and seromas with aspiration. She ended up at 1 point having to have an abdominal wound VAC from the reconstruction. 2. Cholecystectomy. 3. Cervical fusion x2. 4. Multiple back injections for her back pain. 5. Epidurals for her back pain. 6. Cardio-ablations x2. 7. Permanent pacemaker placement in [address] Jimenez. 8. Anal fissure repair. 9. Colon polyp removal. 10.Dilatation and curettage of uterus. SOCIAL HISTORY: She is , ex-smoker from the age of 17 to 1994, occasional wine. No illicit drug use. at bedside. 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 FAMILY HISTORY: Both parents are still living, father with rectal cancer, diabetes, heart disease, mother with depression, hypertension, heart disease, and CVA. ALLERGIES: Benadryl, severe unknown reaction. Soy, flushing. Zofran, nausea, vomiting. HOME MEDICATIONS: 1. Eliquis 5 mg p.o. b.i.d. 2. Suboxone 0.5 p.o. t.i.d. 9, 15, and 2100. 3. Vitamin D3 5000 units p.o. daily. 4. Clonazepam 1 tablet p.o. q.8 hours p.r.n. 5. Prozac 40 mg p.o. daily. 6. Lasix 20-40 mg p.o. p.r.n. 7. Lasix 40 mg p.o. b.i.d. 8. Antivert 25 mg p.o. q.6 hours p.r.n. 9. Mirapex 0.25 mg p.o. at bedtime. 10. Metoporol 25 mg p.o. daily. 11.Zanaflex 4 mg p.o. q.8 hours p.r.n. PHYSICAL EXAMINATION: VITAL SIGNS: Temperature is 97.3, heart rate 86, respiration 18, blood pressure 108/87, O2 is 100% on room air. GENERAL: Ms. Maher is a very talkative 58-year-old female, who was standing up at the bedside in no acute distress, spoke at length in full sentences without any shortness of breath. HEENT: Atraumatic, normocephalic. PERRL. NECK: Supple. Trachea midline. CARDIOVASCULAR SYSTEM: S1, S2 appreciated. No murmurs, gallops, or rubs noted. RESPIRATORY: Lung sounds clear bilaterally. GASTROINTESTINAL: Soft, nontender, nondistended, positive bowel sounds 4 quadrants. Did note a knot masslike area to her right lower quadrant closer to her midline that was palpable, it not appear to be tender. This was what she went to see Dr. Cullen about and has a CT scan scheduled for. NEUROLOGIC: No focal deficits noted. MUSCULOSKELETAL: The patient was able to stand for several minutes at a time unassisted. She would sit down on the bed by herself without any issues, several position changes. Did not assess her gait. LABORATORY DATA: Initial chest x-ray: Stable chest. Followup chest x-ray: No change from prior. Initial EKG V-paced rhythm. White count was 5, hemoglobin and hematocrit was 9 and 30, platelet count 297. Sodium 138, potassium 3.8, BUN 15, creatinine 0.7, blood glucose was 88, AST 40, ALT 22, alkaline phosphatase 165. CK 309. Three sets of troponin have been negative. Initial ProBNP was 321. Followup ProBNP in a.m. was 2989. Urinalysis is negative. ASSESSMENT AND PLAN: 1. Chest pain. The patient has not had any chest pain since 3 a.m. Sunday morning. She has had 3 sets of negative cardiac enzymes. 2. Congestive heart failure exacerbation. Her last echocardiogram that was done in 2012 did show some diastolic heart failure. We will recheck an echocardiogram to reassess her ejection fraction. She does have significant lower extremity edema. We will initiate her on Lasix b.i.d., strict I's and O's, daily weight, healthy heart diet. 3. Bilateral lower extremity swelling significant. See number 2. 4. Iron-deficiency anemia low but stable. Will recheck her hemoglobin and hematocrit in the a.m. I do not see her on any iron supplement. She is followed by Dr. Gudino. 5. Reported multiple episodes of syncope and falls over the past several months. She reports she has been worked up by the emergency room as well as her primary care provider. Most recent syncopal episode was early Sunday morning. Again, will check an echocardiogram. Will discuss further if we need to do any further workup once speaking with Dr. Morrow since this has been ongoing. 6. Chronic pain syndrome. Continue Suboxone. 7. Atrial fibrillation status post permanent pacemaker placement. 8. Hypertension. 9. Chronic abdominal issues with some recent abdominal pain that radiates to the back that she saw Dr. Cullen for last . He does have an outpatient CT scan setup for her on the . She does have a masslike area noted to her right lower quadrant closer to the umbilical area. We may CT her abdomen while she is inhouse, however, I think her lower extremity edema is currently more pressing. 10.Chronic anxiety and depression. She does report that her anxiety and stressors have been at an all time high with her parents getting older in age and with her chronic illnesses as well as the holidays coming up. Will continue her home p.r.n.'s. 11.Further recommendations to follow physician evaluation, laboratory, and diagnostic data. Dictated by QUINTON De La Cruz for Marck Morrow MD cc: MD Yeni Pedraza MD Robert C. Walker, MD Luis N. Villanueva, MD [facility] CENTERNola
[2019-05-27] MEDS: ZANAFLEX PO PRN (13:04)
[2019-05-27] MEDS: PHENERGAN PO PRN ×2 (13:04→20:54)
--- NOTE | 2019-05-27 16:21 | HISTORY AND PHYSICAL ---
ADDENDUM REPORT She is a lady who came in with shortness of breath and mostly complaints of abdominal pain, which is a kind of a subacute complaint and lower extremity swelling. She is status post gastric bypass. She has atrial fibrillation. She does have 3+ pitting edema in both legs with some pemphigoid changes or bullae, which is related to the swelling. Her lungs are relatively clear. She will be admitted for diastolic heart failure. We will pursue echocardiogram, rule out DVT, which is unlikely, proteinuria, which is also not likely, and we will continue to see how she does. DISPOSITION: Pending her clinical status. A [id number] encounter note with Annabella Myrick. cc: Marck Morrow MD
[2019-05-27] MEDS: SUBOXONE 2 MG/0.5 MG FILM SL SCH ×2 (16:35→20:50)
--- NOTE | 2019-05-27 19:18 | Diag Imaging Result Doc PS360 ---
CT ABD/PELVIS W/PO AND IV CON - 05/27/2019 INDICATION: R/O RLQ ?mass COMPARISON: 03/14/2018 FINDINGS: There are significant reticulonodular infiltrates in the lung bases bilaterally. This is suggestive of chronic endobronchially spread infection, such as atypical mycobacteria infection. Stable pacemaker leads. Stable gastric bypass changes. Stable cholecystectomy clips. There is mild fatty change of the liver. The pancreas, spleen, adrenals, and kidneys are normal. There is moderate constipation throughout the colon. No bowel obstruction or inflammation. There is significant body wall edema. There is a small circumscribed fluid collection at the anterior pelvic body wall which was present previously but has increased in size. This measures about 17 x 40 mm. There is trace pelvic free fluid. Urinary bladder and rectum are normal. Bones are intact and normally aligned. IMPRESSION: 1. Small indeterminate fluid collection at the right anterior pelvic body wall, in the deep subcutis fat in the musculature. This was present previously, but has increased from prior. This is indeterminate. But very likely benign. 2. Constipation. Other nonspecific findings described above. This exam was performed using automated exposure control, adjustment of mA or kV according to patient size, and/or use of iterative reconstruction technique Electronically signed by Chema Ocasio 05/27/2019 7:15 PM
[2019-05-27] MEDS: LASIX IV SCH (20:50)
[2019-05-27] MEDS: KLONOPIN PO PRN (20:54)
[2019-05-28 05:48] LABS: AGAP 12; BUN 16 mg/dL (8-22); CALCIUM 7.8 mg/dL (8.8-10.2); CHLORIDE 99 mmol/L (98-107); COSMO 279; CREATININE 0.7 mg/dL (0.5-0.9); ESTIMATED GFR > 60; GLUCOSE 101 mg/dL (70-104); MAGNESIUM 1.8 mg/dL (1.5-2.7); POTASSIUM 3.6 mmol/L (3.5-5.1); SODIUM 139 mmol/L (136-145); TCO2 28 mmol/L (25-35)
[2019-05-28 06:08] LABS: BASO# 0.02 X1000 (0.0-0.2); BASO% 0.4 % (0.0-0.8); EOS# 0.09 X1000 (0.0-0.7); EOS% 1.6 % (0.0-10.0); HEMATOCRIT 28.1 % (37.0-47.0); HEMOGLOBIN 8.1 g/dL (12.0-16.0); IMM GRAN# 0.01 X1000 (0.0-0.04); IMM GRAN% 0.2 % (0.0-0.5); LYMPH# 1.79 X1000 (1.2-3.4); LYMPH% 32.7 % (20.5-51.1); MCH 24.8 PG (27-31); MCHC 28.8 g/dL (33-37); MCV 85.9 FL (81-99); MONO# 0.83 X1000 (0.11-0.59); MONO% 15.1 % (1.7-9.3); MPV 10.7 FL (7.4-10.4); NEUT# 2.74 X1000 (1.4-6.5); PLT 232 X1000 (130-400); RBC 3.27 XMIL (4.2-5.4); RDW 15.1 % (11.5-14.5); WBC 5.48 X1000 (4.8-10.8)
[2019-05-28] MEDS: SUBOXONE 2 MG/0.5 MG FILM SL SCH ×3 (09:07→20:45)
[2019-05-28] MEDS: ZANAFLEX PO PRN ×2 (09:07→23:52)
[2019-05-28] MEDS: VITAMIN D PO SCH (09:07)
[2019-05-28] MEDS: ELIQUIS PO SCH ×2 (09:07→20:45)
[2019-05-28] MEDS: MIRAPEX PO SCH ×2 (09:07→20:45)
[2019-05-28] MEDS: ALDACTONE PO SCH (09:07)
[2019-05-28] MEDS: PROZAC PO SCH (09:07)
[2019-05-28] MEDS: LASIX IV SCH ×2 (09:07→20:45)
--- NOTE | 2019-05-28 12:49 | ECHO REPORT ---
ORDER DATE: 05/27/2019 MEASUREMENTS: Septal thickness 1.0, left ventricular internal diameter in diastole 4.5, posterior wall thickness 0.9, left ventricular internal diameter in systole 3.4, aortic root 2.9, left atrium 4.1. SUMMARY: 1. Technically difficult study due to limited acoustic window quality. 2. The aortic valve is trileaflet and opens normally on 2-dimensional images. The peak gradient across the aortic valve is less than 10 mmHg. Mitral and tricuspid valves are without evidence of structural abnormality, while the pulmonic valve is not well demonstrated. There is very mild mitral regurgitation and mild tricuspid regurgitation. The estimated systolic PA pressure by Doppler is 40 mmHg, suggesting mild pulmonary hypertension. The aortic root is normal in size. 3. Normal left ventricular dimensions demonstrated. The estimated left ventricular ejection fraction appears to be at least 55%. No regional wall motion abnormality can be appreciated. Left atrium is [id number] enlarged on 2-dimensional images. The right atrium is mildly enlarged. The right ventricle is grossly normal in size with grossly preserved right ventricular systolic function. 4. No pericardial effusion. 5. Inferior vena cava not well demonstrated. CONCLUSIONS: 1. Technically difficult study. 2. Very mild mitral regurgitation. 3. Mild tricuspid regurgitation with mild pulmonary hypertension by Doppler. 4. Estimated left ventricular ejection fraction is at least 55%. 5. [id number] biatrial enlargement. cc: MD Marck Wong MD
--- NOTE | 2019-05-28 14:01 | GENERAL SURGERY CONSULTATION ---
DATE: 05/28/2019 REQUESTING PHYSICIAN: Dr. Morrow. REASON FOR CONSULTATION: Intra-abdominal fluid collection. HISTORY OF PRESENT ILLNESS: A 58-year-old female, who is well known to my partner Dr. Cullen, who has seen her before on several occasions. He actually saw her last week for abdominal pain and had ordered a CT scan. She had a palpable mass on her right side, and the CT scan was for that. She apparently came in with several complaints including chest pain, abdominal pain, back pain, syncope, falls and bilateral leg swelling to the emergency department. She has been admitted to the hospital [facility]. She had a CT scan that showed a fluid collection at the palpable area. I was asked to weigh an opinion. The patient reports some discomfort at the area, but reports most her pains in her back and down her legs, which does not correlate with the fluid collection noted on CT scan. I was asked to weigh an opinion. PAST MEDICAL HISTORY: 1. Atrial fibrillation. 2. Hypertension. 3. Sleep apnea. 4. Iron deficiency anemia. 5. Gastroesophageal reflux disease. 6. Chronic back pain. 7. Rheumatoid arthritis. 8. Fibromyalgia. 9. Sciatic nerve issues. 10. History of morbid obesity. 11. Previous lap band converted to gastric bypass. 12. Morbid obesity, status post gastric bypass. 13. History of abdominal seroma. PAST SURGICAL HISTORY: 1. History of lap band. 2. History of gastric bypass. 3. Cholecystectomy. 4. Cervical fusion x2. 5. Multiple epidurals. 6. Permanent pacemaker. 7. Drainage of intra-abdominal abscesses. 8. Ventral hernia repair. SOCIAL HISTORY: . Former smoker. FAMILY HISTORY: Positive for rectal cancer, diabetes, heart disease, depression, hypertension, CVA. ALLERGIES: Benadryl, soy, Zofran. HOME MEDICATIONS: Include Eliquis. The full list is reviewed. She also is on Lasix. REVIEW OF SYSTEMS: A full 14 systems reviewed are negative, other than as specified in HPI. PHYSICAL EXAMINATION: Vital Signs: Patient is currently afebrile. Vital signs are stable. General exam: No acute distress. Alert, interactive female looks stated age. HEENT: Normocephalic, atraumatic. Pupils equal, round, reactive to light. Mucous membranes moist. Oropharynx benign. Neck: Supple. Trachea midline. Cardiovascular: Regular rate and rhythm. Lungs: Grossly clear. Abdomen: Soft, nontender, nondistended. There is a knot noted in the right lower quadrant just lateral to the midline, which corresponds to the fluid collection noted on CT scan. Neurologic: Grossly intact. Extremities: Moves all extremities. Skin: No signs of jaundice. Vascular: All extremities perfused. LABORATORY REVIEWED: White blood cell count is normal. Hematocrit 28, platelet count 232. The remainder of labs reviewed. IMAGING STUDIES: CT scan independently reviewed and radiology report reviewed. ASSESSMENT AND PLAN: A 58-year-old female with abdominal mass and multiple areas of abdominal pain. 1. Abdominal mass at this time looks like a fluid collection. It measures less than 2 cm by less than 4 cm. I did offer an ultrasound-guided drainage, but I think the yield is probably going to be low in the benefit. Given the fact that she has multiple areas of pain, I think the benefit is probably going to be low. She is followed by Dr. Cullen. I will let him know that she is back and he can reassess her, but at this time I do not think that this fluid collection explains all her episodes of pain in her back into her sciatic nerve. 2. Chronic pain. At this time, I do not think the above abdominal fluid collection explains this. 3. Leg swelling. She does have an ultrasound ordered. We will follow up with the results. I appreciate the consult. cc: MD Marck Teran MD
--- NOTE | 2019-05-28 14:08 | PROGRESS NOTE ---
DATE: 05/28/2019 SUBJECTIVE: The patient has no major complaints. She is audra of hard to arouse, but she will come to and answer questions. OBJECTIVE: Vital Signs: Blood pressure is 99/60, heart rate of 91, respiratory rate 22, temperature 97.4 degrees, saturating 98% on room air. Cardiovascular: Regular rate and rhythm. Pulmonary: Bilateral breath sounds. Clear to auscultation. GI: Soft, nontender, nondistended. Bowel sounds are positive. LABORATORY DATA: White count 5, hemoglobin and hematocrit 8 and 28, platelets 232,000. Basic was normal. PROBLEM LIST: 1. Kind of volume overload, anasarca, although mostly dependent. We will continue diuresis. It is really unclear what the etiology is. Her echocardiogram really looked normal. It was not, I guess a good quality, but she is obese, but really not any evidence of heart failure, either diastolic or systolic, so I am not quite sure what is causing that. We are waiting on a 24- hour urine, but she did not have any proteinuria just on a plain urine, and she has no renal failure. As far as I can tell, she does not have liver failure, so will continue diuresis and follow. 2. Atrial fibrillation. She is rate controlled on current medications. She is on Eliquis. I did order some lower extremity venous Dopplers, but she is already on blood thinners, and it is unlikely she has any blood clot, unless she is not very compliant. 3. Disposition pending her clinical status. 4. Intraabdominal wall fluid collection, which may be also related to volume overload. Dr. Holcomb has been consulted. Waiting on recommendations, but right now, I think we are going to observe. She probably does need a drainage potentially, but the area is fairly small, so it would be unlikely to cause issues, and she does not have any clinical signs of infection. cc: Marck Morrow MD
[2019-05-28 22:26] LABS: UR PROTEIN 4.9 mg/dL
[2019-05-28] MEDS: KLONOPIN PO PRN (23:51)
[2019-05-29 07:06] LABS: BASO# 0.01 X1000 (0.0-0.2); BASO% 0.2 % (0.0-0.8); EOS# 0.09 X1000 (0.0-0.7); EOS% 1.8 % (0.0-10.0); HEMATOCRIT 26.6 % (37.0-47.0); HEMOGLOBIN 7.8 g/dL (12.0-16.0); IMM GRAN# 0.01 X1000 (0.0-0.04); IMM GRAN% 0.2 % (0.0-0.5); LYMPH# 2.06 X1000 (1.2-3.4); LYMPH% 40.3 % (20.5-51.1); MCH 24.9 PG (27-31); MCHC 29.3 g/dL (33-37); MONO# 0.74 X1000 (0.11-0.59); MONO% 14.5 % (1.7-9.3); MPV 10.3 FL (7.4-10.4); PLT 228 X1000 (130-400); RBC 3.13 XMIL (4.2-5.4); RDW 14.9 % (11.5-14.5); WBC 5.11 X1000 (4.8-10.8)
[2019-05-29 07:07] LABS: AGAP 11; BUN 15 mg/dL (8-22); CALCIUM 7.8 mg/dL (8.8-10.2); CHLORIDE 102 mmol/L (98-107); COSMO 283; CREATININE 0.7 mg/dL (0.5-0.9); ESTIMATED GFR > 60; GLUCOSE 88 mg/dL (70-104); POTASSIUM 3.3 mmol/L (3.5-5.1); SODIUM 142 mmol/L (136-145); TCO2 29 mmol/L (25-35)
[2019-05-29 08:00] VITALS: BP 107/64
[2019-05-29] MEDS: VITAMIN D PO SCH (08:28)
[2019-05-29] MEDS: ELIQUIS PO SCH (08:28)
[2019-05-29] MEDS: ALDACTONE PO SCH (08:28)
[2019-05-29] MEDS: LASIX IV SCH (08:28)
[2019-05-29] MEDS: PROZAC PO SCH (08:28)
[2019-05-29] MEDS: MIRAPEX PO SCH (08:50)
[2019-05-29] MEDS: SUBOXONE 2 MG/0.5 MG FILM SL SCH (08:50)
--- NOTE | 2019-05-29 11:22 | Vascular Study Report ---
EXAM: Venous U/S Bilateral Legs - 05/27/2019 HISTORY: swelling TECHNIQUE: Bilateral lower extremity Doppler venous ultrasound COMPARISON: None. FINDINGS: The deep veins of the bilateral lower extremities demonstrate flow and compressibility. There are no filling defects identified. IMPRESSION: No evidence of deep venous thrombosis in either lower extremity. Electronically signed by Shabbir Montoya 05/29/2019 11:20 AM
--- NOTE | 2019-05-29 12:50 | DISCHARGE SUMMARY ---
ADMISSION DATE: 05/27/2019 DISCHARGE DATE: 05/29/2019 CONSULTATIONS: Dr. Dayday Holcomb with General Surgery. PERTINENT PROCEDURES: Chest x-ray, stable chest. Echocardiogram is a technically difficult study, showed mild pulmonary hypertension, EF of 55%. Abdomen and pelvis CT showed a small intermediate fluid collection at the right anterior pelvic body wall in the deep subcutis in the fat in the musculature. This was present previously but has increased from prior. This is indeterminate but very likely benign constipation, otherwise nonspecific findings. DISCHARGE DIAGNOSES: 1. Congestive heart failure has been ruled out. Appears to be mostly volume dependent lower extremity edema. Her echocardiogram looks normal. There is no proteinuria seen on her plain urine, no adrenal failure. No liver failure. She has been on diuresis at home. She has been on diuretics, IV while in-house. Our suggestion is that she follow up outpatient with physical therapy to have her legs wrapped. She has seen PT Adrien Bourne in the past, it seems that she is familiar with the process and has had this issue before. She will continue on her home diuretics and follow up with her PCP. 2. Intra-abdominal wall fluid collection. This has been evaluated by Dr. Holcomb. He recommends her following up with Dr. Cullen as an outpatient basis. No signs of infection. 3. Atrial fibrillation, rate controlled. She is on Eliquis and has a permanent pacemaker. 4. Chronic pain syndrome. Continue home regimen. 5. Anxiety and depression. Continue home pain medications. 6. Chest pain, completely resolved. 7. Syncope and collapse with multiple falls at home. The patient has reported has been ongoing for several months, that she follows up with her PCP about. She reports low blood pressures at home. She did have a couple of blood pressures on the lower side after taking several of her sedating medications here. We did hold some of those at times and her blood pressure did rebound. We did some education on taking multiple medications all at once and discussing this with her PCP. HOSPITAL COURSE: Briefly, Ms. Maher is a 58-year-old female with an extensive past medical history with abdominal issues, chronic pain issues, who came to the ED complaining of abdominal pain, chest pain with an episode of syncope and collapse, as well as bilateral lower extremity edema that had been ongoing for months. She had a full workup for heart failure with an echocardiogram that was essentially negative. Her chest, she has been chest pain-free since admission. No more syncopal episodes since admission. Her abdominal mass was CT'd, believed to be a fluid type mass and benign. Consulted Dr. Holcomb. She will follow up with him in the office where he can review those results. Dr. Holcomb did not feel that it needed to be drained. She has been on diuretics for the last 2 days. She has had some improvement. We do believe this is from some venous insufficiency. We have recommended that she follow up with a PT specialist who can give her Unna boots as well as wrap her legs for which she has seen Adrien Bourne in the past for. She appeared to be familiar with that process, so we will have her do that and follow up with her primary care doctor and continue to take her prescribed Lasix at home. She is currently requesting to be discharged home. VITAL SIGNS: At time of discharge, temperature 99 degrees, heart rate 90, respirations 20, blood pressure 107/64, O2 is 100% on room air. DISCHARGE DIET: Healthy heart. DISCHARGE MEDICATIONS: 1. Antivert 25 mg p.o. q. 6 hours p.r.n. 2. Clonazepam 1 tab p.o. q. 8 hours p.r.n. 3. Lasix 20-40 mg p.o. p.r.n. edema. 4. Lasix 40 mg p.o. b.i.d. 5. Mirapex 0.25 mg p.o. at bedtime. 6. Prozac 40 mg p.o. daily. 7. Spironolactone 25 mg p.o. daily. 8. Suboxone 0.5 mg tablet p.o. t.i.d. at 0915 and 2100 hours. 9. Vitamin D3 5000 units p.o. daily. 10. Zanaflex 4 mg p.o. q. 8 hours p.r.n. muscle spasms. 11. Eliquis 5 mg p.o. b.i.d. FOLLOWUP: Ms. Maher is being discharged back home with self care. She is to follow up with a physical therapist for Unna boots and wrapping of her bilateral lower extremities. She is to take all home medications as required. She is to follow up with her PCP, Dr. Yeni Bowling, as well as Dr. Brett Cullen. She can return to the ED or call 911 for any worsening of symptoms. Dictated by QUINTON De La Cruz for Giacomo Cee MD cc: MD Marck Meyers MD Kathy J. Sparacino, MD Robert C. Walker, MD GRACIE SQUARE HOSPITALNola
--- NOTE | 2019-05-29 13:08 | DISCHARGE SUMMARY ---
ADMISSION DATE: 05/26/2019 DISCHARGE DATE: 05/29/2019 ADDENDUM: Patient seen and examined by myself. Full note dictated and discussed with nurse practitioner. On discharge, patient is awake, alert. She is walking around her hospital room. She does have edema in her lower extremities but I expect this is chronic. She has actually been to [facility] in the past for Unna boot. Discussed with her that she needs to do this again and continue to wear her compression stockings afterwards. Discussed the causes of edema. Discussed her that she does not have heart failure or renal failure. Continue home medications. cc: MD Marck Meyers MD MTDD
== END 2019-05-29 11:23 | disposition home or self-care (01) | DRG 300 ==
LOC: P.ED 15:24 → P.MEDSURG 20:51 → SUATTDRO 20:51
PROVIDERS: ADMIT Internal Medicine; ATTEND Family Medicine